=== PATIENT | female | born 1985 | race Asian ===

== ENCOUNTER 2017-09-20 19:05 | Inpatient (IN) | payer MEDICARE ==
[~2017-09-20] VITALS: Ht 144.8 cm; Wt 35.2 kg
[~2017-09-20 19:05] MED LIST: ALESSE PO; BACTROBAN NASAL1 GM NS; FLORINEF 0.1 M0.1 MG PO; K-DUR20 MEQ; K-DUR20 MEQ PO; MAG-OX 400 MG400 MG PO; MAGNESIUM OXID250 M1 PO; MIDODRINE HCL10 MG PO; NORCO 5/325 TAB1 TA1 PO; PEPCID20 MG PO; PERCOCET 5-3251 TAB PO; PROAMATINE10 MG PO; PROAMATINE2.5 MG PO; ROCALTROL0.25 MCG PO; TUMS500 MG; TUMS500 MG PO; TYLENOL 325 MG325 MG PO
--- NOTE | 2017-09-20 23:08 | NUR ---
PT RECEIVED FROM [facility], IV-LFA-NS @ 50 AND K+ INFUSING, WILL CALL FREIGHT SOLICITOR TO RECEIVE NEW ORDERS, PT DENIES ANY NEEDS AT THIS TIME, BED IS LOW, SRX2, CALL LIGHT IN REACH, WILL FOLLOW UP WITH NEW ORDERS
[2017-09-20] MEDS ORDERED: SENSIPAR60 MG PO (23:20)
[2017-09-20] MEDS ORDERED: RENVELA800 MG PO (23:21)
--- NOTE | 2017-09-21 01:56 | NUR ---
WAS UNABLE TO GET CULTURE, PT WAS EMPTY AT THIS TIME
--- NOTE | 2017-09-21 02:23 | NUR ---
STARTED PD-1.5 AT 0155 FINISHED FILLING AT 0210, PT TOLERATED WELL
[2017-09-21 05:03] VITALS: BP 89/51
[2017-09-21 06:24] LABS: ALBUMIN 2.4 g/dL (3.4-5.0); BILIRUBIN - DIRECT 0.08 mg/dL (0.00-0.30); BILIRUBIN - INDIRECT 0.32 mg/dL (0.00-1.00); BILIRUBIN - TOTAL 0.4 mg/dL (0.2-1.3)
--- NOTE | 2017-09-21 07:19 | NUR ---
AM ROUNDING- RECEIVED REPORT FROM BEAMER OPERATOR NURSE ADAM. PT IS CURRENTLY LAYING IN BED BACK WITH EYES OPEN RESTING REQUESTING PAPER TAPE AND GUAZE. PT GIVEN GUAZE AND PAPER TAPE. ON ROOM AIR. NO MONITOR. IV SEEN TO LEFT HAND THAT IS SALINE LOCKED. PER ADAM, PT HAS PD FLUID DWELLING ORDERED AND FOR THIS NURSE TO AWAIT FURTHER ORDERS WRITTEN IN NURSING MESSAGE PER DR. NUÑEZ. NO NEED AT THIS TIME. WILL CONTINUE TO MONITOR AND CONTINUE WITH PLAN OF CARE.
[2017-09-21 08:14] VITALS: BP 100/60
--- NOTE | 2017-09-21 09:18 | NUR ---
DR. NUÑEZ ON UNIT. DR. NUÑEZ MADE AWARE THAT FELT HAT INSPECTOR AND PACKER NURSE ADAM COULD NOT OBTAIN CULTURE FROM PD DRAINAGE DUE TO HAVING NO FLUID TO DRAIN. DR. NUÑEZ GAVE VERBAL ORDERS TO GO AHEAD AND DRAIN PTS PD FLUID AND SEND CULTURE OFF TO LAB. WILL DO ORDERED.
--- NOTE | 2017-09-21 10:45 | NUR ---
PD DIALYSIS DONE ON PT ORDERED. HEPARIN 1,000UNITS INSERTED INTO PD BAG ORDERED. WILL CONTINUE TO MONITOR
[2017-09-21 12:05] VITALS: BP 119/83
[2017-09-21 12:53] VITALS: Ht 144.8 cm; Wt 35.2 kg
--- NOTE | 2017-09-21 13:47 | NUR ---
DR. NUEÑZ ON UNIT. ASKED HIM REGARDING RE-STARTING PTS HOME MEDICATIONS. NO NEW ORDERS RECEIVED.
[2017-09-21 14:06] LABS: MACROPHAGES BF 10 %; NEUT - BF 86 %
--- NOTE | 2017-09-21 15:42 | NUR ---
SECOND ROUND OF PERITONEAL DIALYSIS COMPLETED. PD FLUID IS CLEAR. 1,400CC DRAINED FROM PD BAG. 1,700CC INSERTED AND IS NOW DWELLING. MOTHER IS AT BEDSIDE. PT DENIES ANY NEED AT THIS CURRENT TIME. WILL CONTINUE TO MONITOR.
[2017-09-21 16:18] VITALS: BP 133/63
--- NOTE | 2017-09-21 18:34 | NUR ---
PT IS CURRENTLY LAYING ACROSS BED ON PHONE. MOTHER IS AT BEDSIDE. NO NEED AT THIS TIME. WILL CONTINUE TO MONITOR.
[2017-09-21 19:00] VITALS: BP 107/70
--- NOTE | 2017-09-21 19:44 | NUR ---
RECEIVED REPORT, WILL ASSUME CARE OF PT, PT DENIES ANY NEEDS AT THIS TIME, BED IS LOW, SRX2, CALL LIGHT IN REACH, WILL CONTINUE PLAN OF CARE
[2017-09-22 01:21] VITALS: BP 112/46
--- NOTE | 2017-09-22 03:56 | NUR ---
PD- DRAINED 1800ML, PT TOLERATED WELL
[2017-09-22 04:00] VITALS: BP 112/78
--- NOTE | 2017-09-22 07:28 | NUR ---
AM ROUNDING- RECEIVED REPORT FROM CENTER MANAGER NURSE ADAM. PT IS CURRENTLY LAYING IN BED WITH EYES CLOSED RESTING. MOTHER IS AT BEDSIDE. ON ROOM AIR. NO MONITOR. IV SEEN TO LEFT HAND THAT IS CURRENTLY SALINE LOCKED. NO NEED AT THIS CURRENT TIME. WILL CONTINUE TO MONITOR AND CONTINUE WITH PLAN OF CARE.
[2017-09-22 08:19] LABS: HEPATITIS C ANTIBODY 0.1 (0.0-0.9)
[2017-09-22 08:42] VITALS: BP 109/69
--- NOTE | 2017-09-22 10:55 | NUR ---
PD DIALYSIS DONE ORDERED. 1,600CC OF FLUID DRAINED FROM PD CATHETER. 1,700CC OF FLUID INSERTED INTO PD CATHETER ORDERED. PT DENIES ANY PAIN OR DISCOMFORT. WILL CONTINUE TO MONITOR.
[2017-09-22 12:09] VITALS: BP 117/85
[2017-09-22 16:29] VITALS: BP 113/76
--- NOTE | 2017-09-22 18:43 | NUR ---
PT IS CURRENTLY LAYING IN BED WITH EYES OPEN RESTING. MOTHER IS AT BEDSIDE. PT DENIES ANY NEED AT THIS CURRENT TIME. WILL CONTINUE TO MONITOR.
--- NOTE | 2017-09-22 19:50 | NUR ---
PATIENT RESTING COMFORTABLY AT THIS TIME. FAMILY IN ROOM. DENIES ANY NEEDS. BED LOW, CALL LIGHT IN REACH.
[2017-09-22 20:00] VITALS: BP 125/91
[2017-09-23 01:11] VITALS: BP 123/84
--- NOTE | 2017-09-23 04:07 | NUR ---
PT RESTING COMFORTABLY, EYES CLOSED, RESPIRATIONS EVEN AND UNLABORED. CONTINUE TO MONITOR CLOSELY. BED LOW, CALL LIGHT IN REACH, SIDE RAILS X 2, HOB 20 DEGREES.
[2017-09-23 04:29] VITALS: BP 104/76
[2017-09-23 05:22] LABS: BASOPHILS 0.2 % (0-2); EOSINOPHILS 5.6 % (0-7); HEMATOCRIT 34.4 % (36.0-48.0); HEMOGLOBIN 10.9 g/dL (12-16); IMMATURE GRANULOCYTES 0.2 % (0-5); LYMPHOCYTES 26.7 % (15-50); MCH 28.5 pg (26.0-34.0); MCHC 31.7 g/dL (31.0-37.0); MCV 89.8 fL (80.0-100.0); MEAN PLATELET VOLUME 9.4 fL (7.4-10.4); NEUTROPHILS 62.3 % (40-80); PLATELET COUNT 207 10x3/uL (130-400); RBC 3.83 10x6/uL (4.00-5.40); RDW 15.1 % (11.5-14.5); WBC 5.2 10x3/uL (4.8-10.8)
--- NOTE | 2017-09-23 06:02 | NUR ---
RESTING COMFORTABLY. PD TOLERATED WELL TONIGHT. PATIENT REQUESTED A TYLENOL FOR DISCOMFORT AT 0430. REPORTS NO PAIN AT THIS TIME. BED LOW, CALL LIGHT IN REACH.
[2017-09-23 06:05] LABS: ANION GAP 16.4 mmol/L (8-16); CALCIUM 7.4 mg/dL (8.5-10.1); CARBON DIOXIDE 26.3 mmol/L (21.0-32.0); VANCOMYCIN - RANDOM 31.9 ug/mL (10.0-20.0)
[2017-09-23 06:16] LABS: POTASSIUM - SERUM 2.7 mmol/L (3.5-5.1)
[2017-09-23 08:23] VITALS: BP 114/78
--- NOTE | 2017-09-23 08:48 | NUR ---
AM MEDS GIVEN, PT REFUSED RAMYA STATED THAT IT MAKES HER SICK, USUALLY TAKES IN THE EVENNING. WILL TALK TO DOCTOR TO SEE IF SHE CAN TAKE IN THE EVENING. PT DENIES ANY NEEDS AT THIS TIME. CALL LIGHT IN REACH, FAMILY AT BEDSIDE, NAD NOTED, WILL CONTINUE PLAN OF CARE.
[2017-09-23] MEDS ORDERED: OMNICEF300 MG PO ×2 (11:24→11:25)
[2017-09-23 11:56] VITALS: BP 142/69
--- NOTE | 2017-09-23 14:09 | NUR ---
PROVIDED VERBAL AND WRITTEN DISCHARGE TEACHING TO PT AND MOTHER, BOTH VERBALIZED UNDERSTANDING REGARDING TEACHING. D/C LT UPPER ARM IV, TIP INTACT. 1448- PT LEFT UNIT VIA WHEELCHAIR, ACCOMPANIED BY MOTHER, NAD NOTED.
--- NOTE | 2017-09-23 17:47 | NUR ---
Patient Name: JANINE SMITH Admission Status: Elective Accout number: [id number] Admission Date: 09-20-2017 : 1985 Admission Diagnosis:UNSPECIFIED ABDOMINAL PAIN Attending: ANGELA NUÑEZ Current LOS: 3 Anticipated DC Date: 09-23-2017 Planned Disposition: Home Primary Insurance: MEDICARE A & B Discharge Planning Comments: * Is the patient Alert and Oriented? Yes 0 * How many steps to enter\exit or inside your home? 4 0 * PCP NONE NEPHROLOGISTS - DR. BENJAMIN WHEELER 0 * Pharmacy [facility] MAIL ORDER 0 * Preadmission Environment Home with Family 0 * ADLs Independent 0 * Equipment Other 0 * Other Equipment HOME DIALYSIS EQUIPMENT 0 * List name and contact numbers for known caregivers / representatives who currently or will assist patient after discharge: VICKIE SMITH, FATHER, 0 * Community resources currently utilized None 0 * Please name any agencies selected above. NONE 0 * Additional services required to return to the preadmission environment? No 0 * Can the patient safely return to the preadmission environment? Yes 0 * Has this patient been hospitalized within the prior 30 days at any hospital? No 0 CM MET WITH PT AND HER MOTHER IN ROOM TO DISCUSS DISCHARGE PLANNING AND NEEDS. PT REPORTS LIVING AT HOME INDEPENDENTLY WITH HER CHILDREN. PT HAS HOME HEMODIALYSIS EQUIPMENT AT HOME WITH NO MEDICAL EQUIPMENT PROVIDER PREFERNCE. PT HAS NO OUTSIDE SERVICES ASSISTING IN THE HOME. CM DISCUSSED AVAILABILITY OF HOME HEALTH, REHAB SERVICES AND MEDICAL EQUIPMENT. PT DENIES DISCHARGE NEEDS, REPORTS HER MOTHER IS HERE TO PICK HER UP FOR DISCHARGE HOME. IMPORTANT MESSAGE FROM MEDICARE PROVIDED AND EXPLAINED. Cigarette Examiner: Akbar Chun
--- NOTE | 2017-09-27 14:42 | DS ---
PATIENT:JANINE SMITH :[birth year] MEDICAL RECORD: [id number] DISCHARGE SUMMARY ADMISSION DATE: 09/20/17 DISCHARGE DATE: 09/23/17 REASON FOR ADMISSION: Peritonitis due to peritoneal dialysis catheter and peritoneal dialysis. HOSPITAL COURSE: This is a 32-year-old small framed female with abdominal pain. She had overtly negative CT scan, but did have leukocytosis on her peritoneal fluid. She is improved with vancomycin. She has an adequate level. We will have her follow up with our peritoneal dialysis team at her facility preferably this Thursday. On discharge, we will continue her cinacalcet 60 a day, Renvela 800 t.i.d., oxycodone she has at home, ProAmatine 10 t.i.d., Pepcid 20 twice a day, Florinef 0.2 twice a day, and her Bactroban nasal cream to her nares once a month and her catheter exit site p.r.n. She will follow up with the dialysis nurse. Stable on discharge. Continue renal diet. Her potassium was low at 2.7. We have ordered 30 mEq and she will increase the potassium in her diet and have lab checked with her peritoneal dialysis team. Stable on discharge. TRANSINT:[id number] Voice Confirmation ID: [id number] DOCUMENT ID: [id number] ELIEL DE LEON MD at 1442 CC: [id number] DICTATION DATE: 09/23/17 1119 LAMINATION INSPECTOR: 09/24/17 0200 DIS IN 09/23/17 [id number] [place] [address]
== END 2017-09-23 15:00 | disposition home or self-care (01) | DRG 919 ==
LOC: D.MS 19:05 → D.M2 23:00
PROVIDERS: ADMIT Internal Medicine Nephrology
DX: T85.71XA Infection and inflammatory reaction due to peritoneal dialysis catheter, initial encounter (principal); K65.9 Peritonitis, unspecified; N18.6 End stage renal disease; Y83.8 Other surgical procedures as the cause of abnormal reaction of the patient, or of later complication, without mention of misadventure at the time of the procedure; Z99.2 Dependence on renal dialysis; D63.1 Anemia in chronic kidney disease; I95.9 Hypotension, unspecified; E87.6 Hypokalemia; G89.4 Chronic pain syndrome

== ENCOUNTER 2018-12-28 08:49 | Outpatient (CLI) | payer MEDICARE ==
[~2018-12-28] VITALS: Ht 139.7 cm; Wt 34.0 kg
[~2018-12-28 08:49] MED LIST changes: +OMNICEF300 MG PO; +RENVELA800 MG PO; +SENSIPAR60 MG PO
[2018-12-28 09:30] LABS: BASOPHILS 0.1 % (0-2); EOSINOPHILS 2.3 % (0-7); HEMATOCRIT 22.7 % (36.0-48.0); IMMATURE GRANULOCYTES 0.2 % (0-5); LYMPHOCYTES 16.7 % (15-50); MCH 29.1 pg (26.0-34.0); MONOCYTES 3.4 % (2-11); NEUTROPHILS 77.3 % (40-80); PLATELET COUNT 196 10x3/uL (130-400); RBC 2.58 10x6/uL (4.00-5.40); RDW 15.7 % (11.5-14.5); WBC 8.6 10x3/uL (4.8-10.8)
[2018-12-28 09:38] LABS: HEMOGLOBIN 7.5 g/dL (12-16)
[2018-12-28 09:40] LABS: ANION GAP 15.9 mmol/L (8-16); CALCIUM 9.3 mg/dL (8.5-10.1); CREATININE - SERUM 9.4 mg/dL (0.6-1.3)
[2018-12-28 09:42] LABS: INR 1.09 (0.85-1.17); PROTIME 13.6 SECONDS (11.6-15.0)
[2018-12-28 09:43] LABS: POTASSIUM - SERUM 2.9 mmol/L (3.5-5.1)
[2018-12-28] MEDS ORDERED: K-DUR20 MEQ PO (10:21)
[2018-12-28] MEDS ORDERED: PARICALCITOL4 MCG PO (10:22)
[2018-12-28] MEDS ORDERED: ACETAMINOPHEN325 MG PO (10:23)
[2018-12-28] MEDS ORDERED: CLARITIN 10 MG10 MG PO (10:23)
[2018-12-28] MEDS ORDERED: IMODIUM2 MG PO (10:24)
[2018-12-28] MEDS ORDERED: VASOTEC2.5 MG PO (10:26)
[2018-12-28] MEDS ORDERED: SENSIPAR30 MG PO (10:26)
[2018-12-28] MEDS ORDERED: GENTAMICIN SULF30 G1 TOPICAL (10:28)
[2018-12-28 10:36] LABS: HCG SERUM NEGATIVE (NEGATIVE)
[2018-12-28 10:37] VITALS: BP 148/73; Ht 139.7 cm; Wt 34.0 kg
--- NOTE | 2018-12-28 13:49 | NUR ---
1111 1ST UNIT BLOOD STARTED. SURGERY IS CANCELLED. PT TO RECEIVE BLOOD AND POTASSIUM IV. BLOOD STARTED AT 50/CC/HR BY LT HAND IV 1126 NO PROBLEMS NOTED RATE INCREASED TO 200/CC/HR PT SLEEPING. 1200 ROOM CHECK PT SLEEPING BLOOD GOING WELL. POTASSIUM GIVEN PER E-MAR VIA LEFT ARM AC IV SITE. 1255 1ST UNIT COMPLETED IV FLUSING WITH NS. [id number] UNIT CHECKED AT BEDSIDE, STARTED AT 50/CC HR RENAL DIET SERVED 1320 RATE INCREASED TO 200/CC/HR DENIES PROBLEMS.
--- NOTE | 2018-12-28 13:53 | NUR ---
2044 YASMIN CAZARES APN NOTIFIED OF SURGERY CANCELLED AND WILL NEED TO BE RESCHEDULED.
--- NOTE | 2018-12-28 14:34 | NUR ---
1430 2ND UNIT OF BLOOD HAS COMPLETED. LINE BEING FLUSHED WITH NS. STILL HAS POTASSIUM TO COMPLETE.
--- NOTE | 2018-12-28 14:36 | NUR ---
2885 PT'S FAMILY HAS BROUGHT FOOD FOR HER.
--- NOTE | 2018-12-28 15:14 | NUR ---
1510 DENIES PROBLEMS WITH BLOOD. IV FROM LEFT HAND DC'D WITH CATH INTACT. 4TH POTASSIUM INFUSING.
--- NOTE | 2018-12-28 16:19 | NUR ---
1612 INFUSION HAS COMPLETED OF POTASSIUM. IV DC'D WITH CATH COMPLETE. DENIES PROBLEMS UP TO BR, DEPENDS CHANGED, GETTING DRESSED DC INSTS REVIEWED RELEASED IN WC, MOTHER MEDICAL COORDINATOR PESTICIDE USE HOME.
--- NOTE | 2018-12-28 16:34 | NUR ---
1630 DC INSTS REVIEWED RELEASED IN WC
== END 2018-12-28 16:30 | disposition home or self-care (01) ==
LOC: D.OPS 08:49 → EDSTATUS 09:30 → D.OPS 16:30
PROVIDERS: Anesthesiology; Surgery; ATTEND Internal Medicine Nephrology
DX: N25.81 Secondary hyperparathyroidism of renal origin (principal); I12.0 Hypertensive chronic kidney disease with stage 5 chronic kidney disease or end stage renal disease; N18.6 End stage renal disease; Z99.2 Dependence on renal dialysis

== ENCOUNTER 2019-02-18 08:12 | Inpatient (IN) | payer MEDICARE ==
[~2019-02-18 08:12] MED LIST changes: +ACETAMINOPHEN325 MG PO; +CLARITIN 10 MG10 MG PO; +GENTAMICIN SULF30 G1 TOPICAL; +IMODIUM2 MG PO; +PARICALCITOL4 MCG PO; +SENSIPAR30 MG PO; +VASOTEC2.5 MG PO
[2019-02-18 08:40] LABS: ANION GAP 13.4 mmol/L (8-16); CALCIUM 9.9 mg/dL (8.5-10.1); CREATININE - SERUM 8.3 mg/dL (0.6-1.3); POTASSIUM - SERUM 3.4 mmol/L (3.5-5.1)
[2019-02-18 08:49] LABS: BASOPHILS 0.3 % (0-2); EOSINOPHILS 3.7 % (0-7); HEMATOCRIT 30.9 % (36.0-48.0); HEMOGLOBIN 9.7 g/dL (12-16); IMMATURE GRANULOCYTES 0.6 % (0-5); LYMPHOCYTES 17.7 % (15-50); MCH 28.9 pg (26.0-34.0); MCHC 31.4 g/dL (31.0-37.0); MEAN PLATELET VOLUME 8.9 fL (7.4-10.4); MONOCYTES 3.9 % (2-11); NEUTROPHILS 73.8 % (40-80); PLATELET COUNT 171 10x3/uL (130-400); RBC 3.36 10x6/uL (4.00-5.40); RDW 19.6 % (11.5-14.5); WBC 6.9 10x3/uL (4.8-10.8)
[2019-02-18 08:53] LABS: INR 1.1 (0.85-1.17); PROTIME 13.7 SECONDS (11.6-15.0)
--- NOTE | 2019-02-18 14:55 | NUR ---
OPA IN AIRWAY ON ADMIT TO RR
[2019-02-18 16:40] VITALS: BP 126/78
--- NOTE | 2019-02-18 16:40 | NUR ---
RECEIVED PT FROM RECOVERY AT THIS TIME. HOOKED UP TO MONITOR. VSS. PT AWAKE ALERT AND ORIENTED. INCISION TO ANTERIOR NECK FROM SURGERY. PD CATH TO RIGHT LOWER ABDOMEN. DRESSING CDI. MOTHER IN ROOM. WILL CHECK FOR ORDERS
[2019-02-18 17:22] LABS: BASOPHILS 0.1 % (0-2); EOSINOPHILS 0.8 % (0-7); HEMATOCRIT 29.3 % (36.0-48.0); HEMOGLOBIN 9.2 g/dL (12-16); IMMATURE GRANULOCYTES 0.5 % (0-5); LYMPHOCYTES 12.7 % (15-50); MCH 29.2 pg (26.0-34.0); MCHC 31.4 g/dL (31.0-37.0); MEAN PLATELET VOLUME 8.8 fL (7.4-10.4); MONOCYTES 0.4 % (2-11); NEUTROPHILS 85.5 % (40-80); PLATELET COUNT 160 10x3/uL (130-400); RBC 3.15 10x6/uL (4.00-5.40); RDW 20.2 % (11.5-14.5)
[2019-02-18 17:31] LABS: ANION GAP 19.5 mmol/L (8-16); CALCIUM 8.6 mg/dL (8.5-10.1); CARBON DIOXIDE 21.5 mmol/L (21.0-32.0); CREATININE - SERUM 8.7 mg/dL (0.6-1.3)
[2019-02-18 19:00] VITALS: BP 126/83
--- NOTE | 2019-02-18 19:20 | NUR ---
REPORT REC'D AND CARE ASSUMED, REC'D PT AWAKE, ALERT, AND ORIENTED ON ROOM AIR, LEFT HAND PIV SALINE LOCKED, RIJ CVL DRSG CDI WITH CALCIUM GLUCONATE INFUSING, NON WORKING FISTULA IN RIGHT ARM, MAEE, CM-SR, BP STABLE, ANTERIOR NECK DRSG CDI, SLIGHT EDEMA NOTED, ICE PACK TO SITE, PT DENIES PAIN OR NEEDS AT THIS TIME, SR UP X 2, BED IN LOW POSITION, CALL LIGHT IN REACH.
[2019-02-18 20:00] VITALS: BP 133/84
--- NOTE | 2019-02-18 20:30 | NUR ---
MOTHER AT BS, UPDATE GIVEN AND QUESTIONS ANSWERED, PT DENIES NEEDS
[2019-02-18 21:00] VITALS: BP 131/85
[2019-02-18 22:00] VITALS: BP 138/95
--- NOTE | 2019-02-18 22:00 | NUR ---
EVENING MEDS GIVEN ORDERED, PT ASSISTED TO REPOSITION FOR COMFORT, BRIEF INTACT AND DRY, WILL CONT TO MONITOR FOR CHANGES.
[2019-02-18 23:00] VITALS: BP 148/104
--- NOTE | 2019-02-18 23:00 | NUR ---
REASSESSMENT COMPLETED, PT DENIES NEEDS, BP STABLE, WILL MONITOR.
[2019-02-18 23:56] LABS: ANION GAP 20.9 mmol/L (8-16); CALCIUM 7.5 mg/dL (8.5-10.1); CARBON DIOXIDE 21.3 mmol/L (21.0-32.0)
[2019-02-18 23:58] LABS: POTASSIUM - SERUM 5.2 mmol/L (3.5-5.1)
[2019-02-19] VITALS (19 sets, daily range): BP systolic 92–161; BP diastolic 43–108; BMI 18.6
--- NOTE | 2019-02-19 01:30 | NUR ---
ROUTINE MEDS GIVEN, PT RESTING QUIETLY WATCHING TV, DENIES PAIN OR NEEDS, VISIBLE TO NURSES STATION.
--- NOTE | 2019-02-19 03:15 | NUR ---
REASSESSMENT COMPLETED, NO CHANGES FROM PREVIOUS ASSESSMENT, WILL CONT TO MONITOR CLOSELY FOR CHANGES.
--- NOTE | 2019-02-19 05:20 | NUR ---
AM LAB DRAWN FROM CV[facility] AND SENT TO LAB, RUBI ENRIQUEZ ON UNIT, ORDERS REC'D.
[2019-02-19 06:05] LABS: ANION GAP 22.8 mmol/L (8-16); CALCIUM 7.4 mg/dL (8.5-10.1); CARBON DIOXIDE 18.4 mmol/L (21.0-32.0); CREATININE - SERUM 9.3 mg/dL (0.6-1.3); MAGNESIUM - SERUM 1.4 mg/dL (1.8-2.4)
[2019-02-19 06:11] LABS: BASOPHILS 0 % (0-2); EOSINOPHILS 0 % (0-7); HEMATOCRIT 27.3 % (36.0-48.0); HEMOGLOBIN 8.6 g/dL (12-16); IMMATURE GRANULOCYTES 0.4 % (0-5); LYMPHOCYTES 5.6 % (15-50); MCH 29.4 pg (26.0-34.0); MCHC 31.5 g/dL (31.0-37.0); MCV 93.2 fL (80.0-100.0); MEAN PLATELET VOLUME 9.4 fL (7.4-10.4); PLATELET COUNT 162 10x3/uL (130-400); RBC 2.93 10x6/uL (4.00-5.40); RDW 20.4 % (11.5-14.5); WBC 11.9 10x3/uL (4.8-10.8)
[2019-02-19 06:27] LABS: POTASSIUM - SERUM 7.2 mmol/L (3.5-5.1)
--- NOTE | 2019-02-19 07:05 | NUR ---
REPORT RECIEVED FROM TANDEM MILL STICKER AND PATIENT CARE ASSUMED. PATIENT LAYING IN BED ON BACK WITH HOB ELEVATED 15 DEGREES. PATIENT IS AWAKE, ALERT AND ORIENTED X 4. ANTERIOR NECK DRSG C/D/I. MILD EDEMA TO PERIWOUND. NO REDNESS. PATIENT DENIES PAIN TO WOUND/NECK AND DENIES THROAT PAIN AND DIFFICULTY SWALLOWING. PAITENT IS STABLE AND VSS. WILL CONTINUE WITH PLAN OF CARE. SR UP X 2 BED IN LOW POSITION AND CALL LIGHT IN REACH.
--- NOTE | 2019-02-19 07:28 | NUR ---
PATIENT AND NURSE WEARING MASK. PEROTINEAL DIALYSIS BEGUN AT 07. NO DRAINAGE FROM PERITENEUM.1500 CC OF WARMED 1.5% DEXTROSE SOLUTION INSTILLED PER MAR ORDER. DIALYSIS COMPLETED AT 07. PATIENT TOLERATED WELL. WILL CONTIUE WITH PLAN OF CARE. SR UP X 2 BED IN LOW POSTION AND CALL LIGHT IN REACH.
--- NOTE | 2019-02-19 09:00 | NUR ---
ASSESSMENT COMPLETED. PATIENT IS STABLE AND VSS. REQUESTED, PROVIDED PATIENT WITH ICE PACK TO PLACE ON ANTERIOR NECK. DRSG STILL C/D/I. PATIENT MOTHER AT BEDSIDE. WILL CONTINUE TO MONITOR.
--- NOTE | 2019-02-19 10:59 | NUR ---
PATIENT RESTING QUIETLY IN BED WITH EYES CLOSED AND BREATHING EVENLY. VSS. REASSESSMENT COMPLETED. WILL CONTINUE TO MONITOR. SR UP X 2 BED IN LOW POSITION AND CALL LIGHT IN REACH.
--- NOTE | 2019-02-19 12:29 | NUR ---
PD BEGUN. PATIENT IS STABLE AND VSS. 2000 ML CLEAR, YELLOW FLUID REMOVED AND 1500 ML DIALYSIS SOLUTION 1.5% DEXTROSE INSTILLED. PATIENT REMAINS STABLE AND VSS. PATIENT DENIES ANY NEEDS OR PAIN. WILL CONTINUE TO MONITOR. SR UP X 2 BED IN LOW POSITION AND CALL LIGHT IN REACH.
[2019-02-19 12:59] LABS: ANION GAP 17.6 mmol/L (8-16); CALCIUM 7.4 mg/dL (8.5-10.1); CARBON DIOXIDE 22.4 mmol/L (21.0-32.0)
--- NOTE | 2019-02-19 15:00 | NUR ---
PATIENT RESTING COMFOTABLY. RESSESSMENT COMPLETED. PATIENT STABLE AND UNCHANGED. WILL CONTINUE TO MONITOR. SR UP X 2 BED IN LOW POSITION AND CALL LIGHT IN REACH.
--- NOTE | 2019-02-19 16:14 | NUR ---
PATIENT IS STABLE AND VSS. PD BEGUN AND COMPLETED. START TIME 1614 END TIME 1637. 1600 CC OF CLEAR, YELLOW FLUID REMOVED AND 1500 CC 1.5% DEXTROSE SOLUTION INSTILLED. PATIENT REMAINS STABLE AND VSS. PATIENT DENIES ANY NEEDS OR PAIN. WILL CONTINUE TO MONITOR. SR UP X 2 BED IN LOW POSTION AND CALL LIGHT IN REACH.
[2019-02-19 18:25] LABS: ANION GAP 17.2 mmol/L (8-16); CALCIUM 7.4 mg/dL (8.5-10.1); CARBON DIOXIDE 24.2 mmol/L (21.0-32.0); CREATININE - SERUM 8.5 mg/dL (0.6-1.3)
[2019-02-19 18:27] LABS: POTASSIUM - SERUM 4.4 mmol/L (3.5-5.1)
--- NOTE | 2019-02-19 19:20 | NUR ---
REPORT REC'D AND CARE ASSUMED, REC'D PT RESTING IN BED VISITING WITH MOTHER, ON ROOM, AWAKE, ALERT, AND ORIENTED X 4, RIJDL DRSG CDI SALINE LOCKED, DRSG TO ANTERIOR NECK CDI, NO DRAINAGE AND ONLY SLIGHT EDEMA NOTED, PT DENIES SORE THROAT, TOLERATING PO INTAKE, NON WORKING FISTULA NOTED TO RIGHT ARM, MAEE, ADULT BRIEF INTACT AND DRY, PT DENIES PAIN OR NEEDS, SR UP X 2, BED IN LOW POSITION PD CATHETER SECURED TO ABDOMEN WITH TAPE AND STERILE CAP IN PLACE , CALL LIGHT IN REACH.
--- NOTE | 2019-02-19 20:30 | NUR ---
MOTHER AT BS FOR VISITING, PT DENIES NEEDS
--- NOTE | 2019-02-19 20:40 | NUR ---
DR. DE LEON ON UNIT, NEW ORDERS REC'D
--- NOTE | 2019-02-19 22:00 | NUR ---
PT RESTING QUIETLY IN BED, EXPLAINED TO PATIENT MD HAD BEEN HERE AND ADJUSTED FREQUENCY OF PD, PT VERBALIZED UNDERSTANDING, CUP OF ICE PROVIDED, PT DENIES FURTHER NEEDS
[2019-02-20] VITALS (17 sets, daily range): BP systolic 101–173; BP diastolic 54–112
--- NOTE | 2019-02-20 | NUR ---
PERITONEAL DIALYSIS COMPLETED, SEE FLOWSHEET, BP STABLE, PT DENIES NEEDS.
--- NOTE | 2019-02-20 02:00 | NUR ---
NO CHANGES IN STATUS @ THIS TIME
--- NOTE | 2019-02-20 04:00 | NUR ---
ROUTINE MEDS GIVEN, PT DENIES PAIN OR NEEDS, BP ELEVATED WILL CONT TO MONITOR.
--- NOTE | 2019-02-20 05:30 | NUR ---
AM LAB DRAWN FROM CVL AND SENT TO LAB
--- NOTE | 2019-02-20 06:06 | NUR ---
PERITONEAL DIALYSIS DONE ORDERED, PT INCONTINENT OF STOOL, HIBICLENS BATH AND LINEN CHANGE PROVIDED, ADULT BRIEF CHANGED, PT REPOSITIONED UP IN BED FOR COMFORT, PT DENIES PAIN OR NEEDS, SR UP X 2, CALL LIGHT IN REACH.
[2019-02-20 06:29] LABS: ANION GAP 14.7 mmol/L (8-16); CALCIUM 8.8 mg/dL (8.5-10.1); CARBON DIOXIDE 25.6 mmol/L (21.0-32.0); CREATININE - SERUM 8.5 mg/dL (0.6-1.3); POTASSIUM - SERUM 4.3 mmol/L (3.5-5.1)
--- NOTE | 2019-02-20 07:35 | NUR ---
SHIFT REPORT RECEIVED. AA&0X4. DENIES PAIN AT THIS TIME. ON ROOM AIR. ANTERIOR NECK INCISION WITH DRESSING CDI. RIJ DOUBLE LUMEN CVL DRESSING CDI SALINE LOCKED. PD PORT ON R ABDOMEN. 22G PIV ON L-HAND SALINE LOCK. SHIFT ASSESSMENT COMPLETED. BED PLACED IN LOW POSITION. MEAL TRAY DELIVERED AND SET UP. NO FURTHER NEEDS AT THIS TIME. WILL CONTINUE TO MONITOR.
--- NOTE | 2019-02-20 09:01 | NUR ---
ANABEL ENRIQUEZ WITH NEPROLOGY GROUP ASSESSED PT. BP ELEVATED. INCREASED VASOTEC DOSE TO 10MG PO DAILY. PT RESTING COMFORTABLY. FAMILY MEMBER AT BEDSIDE. DENIES FURTHER NEEDS AT THIS TIME.
--- NOTE | 2019-02-20 09:25 | NUR ---
DR. DE LEON AT BEDSIDE. PATIENT CAN TRANSFER TO FLOOR PER DR. DE LEON.
--- NOTE | 2019-02-20 10:26 | NUR ---
BP 164/110. APRESOLINE 10MG IV GIVEN TO TREAT HIGH BP PER ORDERS.
--- NOTE | 2019-02-20 11:24 | NUR ---
REASSESSMENT COMPLETED. BP 140/95. HR 118. PT REPORTS HEADACHE 5/10. TYLENOL GIVEN FOR PAIN. WILL CONTINUE TO MONITOR.
--- NOTE | 2019-02-20 12:43 | NUR ---
PERITONEAL DIALYSIS COMPLETED PER ORDERS. SITTING UP ON SIDE OF BED EATING LUNCH.
--- NOTE | 2019-02-20 15:50 | NUR ---
PT BEING TRANSFERRED TO 2104. REPORT CALLED IN TO GAUTAM DYER. L-HAND IV DC'D WITH CATHETER TIP INTACT. MOTHER AT BEDSIDE.
--- NOTE | 2019-02-20 16:05 | NUR ---
TRANSFERRED TO FLOOR ROOM 2105 VIA WHEELCHAIR. MOTHER AT BEDSIDE. PERSONAL BELONGINGS SENT WITH PATIENT. RECEIVING NURSE NOTIFIED OF PT ARRIVAL. CHART DELIVERED TO WINTERIZER.
--- NOTE | 2019-02-20 16:09 | NUR ---
RECIEVED PATIENT FROM ICU, TRANSPORTED VIA WHEELCHAIR, AAOX4. RIGHT IJ, PATENT, DRESSING C/D/I. ON ROOM AIR, MOTHER IS PRESENT, PT IS AMBULATORY, ON PERITONEAL DIALYSIS, DENIES ANY CURRENT NEEDS OR DISCOMFORTS, BED LOWERED AND LOCKED, CALL LIGHT WITHIN REACH. CPOC
--- NOTE | 2019-02-20 19:45 | NUR ---
ROUNDS COMPLETED. VSS, AAOX3, NO S/S OF RR DISTRESS. MOTHER AT BEDSIDE. RIJ CENTRAL LINE DRESSING C/D/I. ABDOMINAL PERITONEAL DIALYSIS ACCESS SITE DRESSING C/D/I. PT DENIES ANY FURTHER NEEDS AT THIS TIME. WILL CPOC.
[2019-02-20 20:32] LABS: ANION GAP 16.4 mmol/L (8-16); CALCIUM 8.2 mg/dL (8.5-10.1); CARBON DIOXIDE 26.4 mmol/L (21.0-32.0); CREATININE - SERUM 8.5 mg/dL (0.6-1.3); POTASSIUM - SERUM 3.8 mmol/L (3.5-5.1)
--- NOTE | 2019-02-21 00:34 | NUR ---
PERITONEAL DIALYSIS COMPLETED. PT LAYING IN BED WITH EYES CLOSED AT THIS TIME. WILL CPOC.
[2019-02-21 03:25] VITALS: BP 182/112
[2019-02-21 05:38] LABS: ANION GAP 14.5 mmol/L (8-16); CALCIUM 8.1 mg/dL (8.5-10.1); CARBON DIOXIDE 28.1 mmol/L (21.0-32.0); CREATININE - SERUM 8.4 mg/dL (0.6-1.3); POTASSIUM - SERUM 3.6 mmol/L (3.5-5.1)
[2019-02-21 06:11] LABS: BASOPHILS 0.3 % (0-2); HEMATOCRIT 25.3 % (36.0-48.0); HEMOGLOBIN 7.7 g/dL (12-16); IMMATURE GRANULOCYTES 0.8 % (0-5); LYMPHOCYTES 19.9 % (15-50); MCH 28.9 pg (26.0-34.0); MCHC 30.4 g/dL (31.0-37.0); MCV 95.1 fL (80.0-100.0); MONOCYTES 3.3 % (2-11); NEUTROPHILS 72.7 % (40-80); PLATELET COUNT 154 10x3/uL (130-400); RBC 2.66 10x6/uL (4.00-5.40); RDW 20.9 % (11.5-14.5); WBC 7.6 10x3/uL (4.8-10.8)
[2019-02-21] MEDS ORDERED: TUMS PO (07:10)
[2019-02-21 09:00] VITALS: BP 144/92
--- NOTE | 2019-02-21 09:00 | NUR ---
REMOVED PTS R.IJ DOUBLE LUMEN CVL WITH CATHETER TIP FULLY INTACT. ONE SUTURE REMOVED AND TEACHING PROVIDED TO LAY FLAT FOR 10MINS. NO S/S OF BLEEDING OR INFECTION NOTED AT SITE. GUAZE AND DRSG IN PLACE. ALSO CHANGED PTS NECK DRSG, COVERED WITH DRY GUAZE AND DETAILED INSTRUCTION PROVIDED TO PT AND MOM ON DAILY CLEANING PROCESS WITH SOAP AND WATER, SUPPLIES GIVEN FOR THEM WELL TO KEEP COVERED AT HOME OR WHEN OUT AND ABOUT. PT VOICED THANKS.
--- NOTE | 2019-02-21 09:50 | NUR ---
DISCHARGE TEACHING PROVIDED AND PAPERS SIGNED. PT VERBALIZED UNDERSTANDING AND DENIES ANY QUESTIONS OR CONCERNS. ALL BELONGINGS COLLECTED. WILL CALL FOR ESCORT NOW. NO FURTHER NEEDS.
--- NOTE | 2019-02-21 10:01 | MORECARE ---
CASE MANAGEMENT DISCHARGE SUMMARY PATIENT: JANINE SMITH UNIT: [id number] ADM DATE: 02/18/19 AGE: 33 : [birth year] SEX: F ROOM/BED: D.9728 AUTHOR: CJ,DOC PHYSICIAN: REFERRING PHYSICIAN: BNEJAMIN WHEELER MD DATE OF SERVICE: 02/21/19 Discharge Plan Patient Name: JANINE SMITH Facility: [facility]:[place] : 1985 Planned Disposition: Home Anticipated Discharge Date: 02/21/19 Discharge Date: Expected LOS: 3 Initial Reviewer: [id number] Initial Review Date: 02/21/2019 Generated: 02/21/19 11:01 am Comments DCP- Discharge Planning Updated by [id number]: Akbar Chun on 02/21/19 8:[address] Patient Name: JANINE SMITH Encounter No: [id number] : 1985 Primary Insurance: MEDICARE A & B Anticipated DC Date: 02-21-2019 Planned Disposition: Home DISCHARGE PLANNING NOTE: CM MET WITH PT IN ROOM TO DISCUSS DISCHARGE PLANNING AND NEEDS. PT REPORTS LIVING AT HOME DEPENDENTLY ON MOTHER AND FATHER FOR BATH AND TRANSPORTATION ASSISTANCE. PT HAS NO MEDICAL EQUIPMENT AND NO OUTSIDE SERVICES ASSISTING IN THE HOME. PT HAS HOME DIALYSIS DAILY. CM DISCUSSED AVAILABILITY OF HOME HEALTH, REHAB SERVICES AND MEDICAL EQUIPMENT. PT DENIES DISCHARGE NEEDS, REPORTS HER MOTHER IS HERE AND WILL PICK HER UP FOR DISCHARGE HOME TODAY. IMPORTANT MESSAGE FROM MEDICARE PROVIDED AND EXPLAINED. MEMBERSHIP DIRECTOR NURSE NOTFIED. Akbar Chun, CASE MANAGEMENT DCPIA - Discharge Planning Initial Assessment Updated by [email or web address]: Akbar Chun on 02/21/19 9:56 am * Is the patient Alert and Oriented? Yes * How many steps to enter\exit or inside your home? * PCP DR. BENJAMIN WHEELER * Pharmacy [facility] MAIL ORDER NO LOCAL PHARMACY * Preadmission Environment Home with Family * ADLs Partial Dependent * Partial ADLs (Assistance needed) Bathing * Equipment Other * Other Equipment HOME PERITENEAL DIALYSIS EQUIPMENT * List name and contact numbers for known caregivers / representatives who currently or will assist patient after discharge: LIANA SMITH, FATHER, * Verbal permission to speak to the caregivers and representatives has been obtained from the patient. Yes * Community resources currently utilized None * Please name any agencies selected above. NONE * Additional services required to return to the preadmission environment? No * Can the patient safely return to the preadmission environment? Yes * Has this patient been hospitalized within the prior 30 days at any hospital? No Coverage Notice Reviewer: [id number] Danette Chun Notice Issued Date-Time: 02/21/2019 8:50 Notice Type: IM Discharge Notice Notice Delivered To: Patient Relationship to Patient: Slurry Plant Operator Name: Delivery Method: HAND - Hand Delivered Clarita Days: Prior Verbal Notification: Recipient Understood Notice: Yes Recipient Signature: Yes Med Rec Note Co-signed by Attending: Coverage Notice Comment: Patient Name: JANINE SMITH Page [phone] at 1001 All edits/amendments must be made on the electronic document DICTATION DATE: 02/21/19 1001 STRESS ENGINEER: FARZANA 02/21/19 1001 RPT#: [id number] DC DATE: STATUS: ADM IN [facility] [address] [place] [address] END OF REPORT
--- NOTE | 2019-02-21 10:36 | OP ---
PATIENT NAME: JANINE WAITE MEDICAL RECORD: [id number] :85 LOCATION:D.M2 D.2105 ADMISSION DATE:02/18/19 SURGEON: SAGE WILSON MD DATE OF OPERATION: 02/18/2019 REFERRING PHYSICIAN: Dr. Leila Watts. PREOPERATIVE DIAGNOSIS: Recurrent secondary hyperparathyroidism due to a single hyperplastic gland in the left superior position. POSTOPERATIVE DIAGNOSIS: Recurrent secondary hyperparathyroidism due to a single hyperplastic gland in the left superior position. OPERATION PERFORMED: Intraoperative scintigraphic mapping and localization of the hyperplastic parathyroid gland followed by minimally invasive neck exploration and removal of parathyroid gland with frozen section confirmation of the tissue diagnosis. SURGEON: Sage Wilson MD ANESTHESIA: General endotracheal per [facility]. PREOPERATIVE NOTE: Ms. Waite is a petite 33-year-old woman with end-stage renal disease, who has been on dialysis for quite a long time. She is doing a continuous peritoneal dialysis at home. She has had problems with secondary hyperparathyroidism for years. She number of years ago underwent a 3-1/2 gland parathyroidectomy, which temporarily resolved her problem. She now, however, has very elevated intact parathyroid hormone level and was referred back to me for repeat neck exploration. 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 She is brought to the hospital this morning with plans to administer the sestamibi isotope and after 2 hours to begin scanning to see if we can localize the radioactive parathyroid prior to the neck exploration. In my opinion, if her sestamibi scan is intensely positive in a position that corresponds with or correlates well with a past history of parathyroidectomy sparing one half of the left upper parathyroid and if that is the finding in surgery than I do not think that it is necessary at this point to explore and look for more than 1 tumor. Under general endotracheal anesthesia in supine position, the patient was prepped and draped in sterile manner. She was scanned preoperatively with the handheld Neoprobe device and a definite hot spot near the left upper thyroid pole was identified with counts of approximately 1700 with baseline background radiation of about 800 counts in the other 3 thyroid quadrants. I made a transverse incision reopening, the left lateral half of the scar from her previous collar incision for parathyroidectomy. The platysma was divided and a short subplatysmal flaps raised. The midline was exposed, so the strap muscles were there in the midline and mobilized to the left. Blunt and electrocautery dissection was necessary to expose the anterior surface of the thyroid gland. 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 The gland was removed totally devascularized and removed. I did note that there was a staple or clip present from the previous operation. The parathyroid gland was sent to pathology where it was confirmed to be parathyroid tissue. OPERATIVE REPORT [id number] JANINE WAITE The wound was irrigated with Ancef and gentamicin solution. The patient was rather oozy to begin with and this responded to administration of 10 mcg of DDAVP intravenously by the band aid machine operator and hemostasis was excellent at the completion of the operation. A small amount of fibrillar was used at the base of the parathyroid gland to complete the hemostasis. No drain was necessary. The strap muscles were approximated in the midline with interrupted 3-0 Vicryl. Platysma was approximated with interrupted inverted 3-0 Vicryl and the skin was closed with a running intracuticular 4-0 Monocryl suture. The incision was sealed with glue and dressed with Maxorb Ag, Tegaderm, and Cavilon skin prep. I then used ultrasound to image the right internal jugular vein. It was patent, although I could see that the lumen was certainly narrowed just behind the clavicle, no doubt from scarring from numerous previous central dialysis catheters. I accessed that vein about 2 fingerbreadths above the clavicle with ultrasound guidance and with micropuncture technique. I inserted a micropuncture guidewire as far as it was easily advanced without resistance, which was about half the normal distance I would expect to reach the atrium. I inserted the 4-Central African catheter over the guidewire and then with intraoperative fluoroscopy performed a superior vena cavogram. This demonstrated that the proximal brachiocephalic vein on the right and upper superior vena cava were kinked almost in a curlicue. I was then able to manipulate a 0.035 Glidewire through that 4-Central African catheter passed the curlicue and into the right atrium. A dilator was passed over that and then following that a dual lumen 8-1/2 Central African central venous line was inserted over the guidewire. The tip of that catheter was positioned in the right atrium. The guidewire was removed. Both lumens were aspirated, free return of blood confirmed. They were then flushed with saline and then heparin locked, clamped and capped. The catheter was sutured to the skin with a 2-0 Prolene suture and further sterile dressings including a chlorhexidine patch were applied. Blood loss during the operation was about 2 cc. None was replaced. Sponges, instruments, and needles were accounted for. No drain was used and the surgical specimen consisted only of one parathyroid gland, one hyperplastic parathyroid gland. PLAN: The patient is to be admitted to the ICU postoperatively and we will have to closely monitor her calcium levels as well as magnesium and check a followup intact parathyroid hormone level on her tomorrow morning. Arrangements will be made for her to continue peritoneal dialysis as well. TRANSINT:[id number] Voice Confirmation ID: [id number] DOCUMENT ID: [id number] SAGE WILSON MD at 1036 CC: LEILA WATTS [id number] DICTATION DATE: 02/18/19 1532 [place] HAND: 02/18/19 2236 DIS IN 02/21/19 [facility] [address] [place] [address]
== END 2019-02-21 10:04 | disposition home or self-care (01) | DRG 674 ==
LOC: D.OPS 08:12 → D.M2 14:58 → D.ICU 15:37 → D.OPS 23:42 → D.ICU 23:43 → D.M2 02-20 16:04
PROVIDERS: Internal Medicine Nephrology; Surgery; ADMIT Internal Medicine Nephrology; ATTEND Internal Medicine Nephrology
PROC: 02HV33Z Insertion of Infusion Device into Superior Vena Cava, Percutaneous Approach (ICD-10-PCS; 2019-02-18)
PROC: B5181ZA Fluoroscopy of Superior Vena Cava using Low Osmolar Contrast, Guidance (ICD-10-PCS; 2019-02-18)
PROC: B5181ZZ Fluoroscopy of Superior Vena Cava using Low Osmolar Contrast (ICD-10-PCS; 2019-02-18)
PROC: 0GBR0ZZ Excision of Parathyroid Gland, Open Approach (ICD-10-PCS; principal; 2019-02-18 10:45)
DX: N25.81 Secondary hyperparathyroidism of renal origin (principal); I12.0 Hypertensive chronic kidney disease with stage 5 chronic kidney disease or end stage renal disease; N18.6 End stage renal disease; E87.5 Hyperkalemia; D63.1 Anemia in chronic kidney disease

== ENCOUNTER 2020-06-15 01:18 | Inpatient (IN) | payer MEDICARE ==
[~2020-06-15] VITALS: Ht 139.7 cm; Wt 35.2 kg
[2020-06-15] VITALS (17 sets, daily range): BP systolic 80–118; BP diastolic 40–88; BMI 17.4
[~2020-06-15 01:18] MED LIST changes: +TUMS PO
--- NOTE | 2020-06-15 01:43 | NUR ---
PT'S BRIEF CHANGED AND JUANI CARE PROVIDED. PT GIVEN BLANKET AND HEAD OF BED ADJUSTED TO LEVEL OF COMFORT, PT DENIES ANY FURTHER NEEDS AT THIS TIME. CALL LIGHT IN REACH WILL CONTINUE TO MONITOR.
[2020-06-15 02:13] LABS: BASOPHILS 0.2 % (0-2); EOSINOPHILS 1.5 % (0-7); HEMATOCRIT 22.1 % (36.0-48.0); LYMPHOCYTES 25.8 % (15-50); MCH 29.1 pg (26.0-34.0); MCHC 32.6 g/dL (31.0-37.0); MCV 89.5 fL (80.0-100.0); MEAN PLATELET VOLUME 8.7 fL (7.4-10.4); MONOCYTES 6.1 % (2-11); NEUTROPHILS 66.4 % (40-80); RBC 2.47 10x6/uL (4.00-5.40); RDW 14.3 % (11.5-14.5); WBC 5.3 10x3/uL (4.8-10.8)
[2020-06-15 02:21] LABS: PLATELET COUNT 123 10x3/uL (130-400)
[2020-06-15 02:22] LABS: HEMOGLOBIN 7.2 g/dL (12-16)
--- NOTE | 2020-06-15 02:39 | NUR ---
OCCULT BLOOD STOOL NEGATIVE EDP INFORMED.
[2020-06-15 02:40] LABS: ALBUMIN 2.2 g/dL (3.4-5.0); ALKALINE PHOSPHATASE 64 U/L (30-120); ALT (SGPT) 18 U/L (10-68); AMYLASE - SERUM 114 U/L (25-115); BILIRUBIN - TOTAL 0.23 mg/dL (0.2-1.3); CALC OSMOLALITY 275 mosm/kg (275-300); CARBON DIOXIDE 21.8 mmol/L (21.0-32.0); CHLORIDE - SERUM 102 mmol/L (98-107); CREATINE KINASE 58 UL (21-215); CREATININE - SERUM 9.3 mg/dL (0.6-1.3); GLUCOSE 101 mg/dL (74-106); LIPASE 256 U/L (73-393); PROTEIN - SERUM 4.8 g/dL (6.4-8.2); SODIUM 135 mmol/L (136-145); TROPONIN-I 0.026 ng/mL (0.000-0.060); UREA NITROGEN 29 mg/dL (7-18); eGFR NON AFRICAN AMERICAN 5 mL/min (90-120)
[2020-06-15 02:45] LABS: POTASSIUM - SERUM 2.5 mmol/L (3.5-5.1)
[2020-06-15 03:15] LABS: HCG SERUM NEGATIVE (NEGATIVE)
--- NOTE | 2020-06-15 04:49 | NUR ---
PT MOVED TO TRAUMA ROOM 3 FOR CENTRAL LINE PLACEMENT.
--- NOTE | 2020-06-15 04:50 | NUR ---
CONSENT FORMS FOR PROCEDURE SIGNED BY PT AT THIS TIME.
[2020-06-15 05:15] LABS: PROTEIN - BODY FLUID 1.4 G/DL
--- NOTE | 2020-06-15 05:15 | NUR ---
EDP AT BEDSIDE TO PLACE CENTRAL LINE.
--- NOTE | 2020-06-15 05:24 | NUR ---
PT'S IV CALCIUM FINISHED AT THIS TIME.
[2020-06-15 05:57] LABS: MACROPHAGES BF 24 %; NEUT - BF 50 %
--- NOTE | 2020-06-15 06:11 | NUR ---
PT'S BRIEF CHANGED AND JUANI CARE PROVIDED. PT GIVEN WARM BLANKETS. DENIES ANY NEEDS AT THIS TIME, CALL LIGHT WITHIN REACH. WILL CONTINUE TO MONITOR.
--- NOTE | 2020-06-15 07:15 | NUR ---
ASSUMED CARE OF PT. RESTING IN BED/WATCHING TV. DENIES C/O OR NEED. A/OX3. RESP EVEN/UNLABORED. SKIN W/D/P. PERITONEAL DIALYSIS PORT TO RLQ WITH JUANG D/I. DENIES PAIN AT SITE "ONLY WHEN I DO MY DIALYSIS" PT REPORTS LAST DIALYSED THURSDAY. MATTHEWS INDPEEPENDENTLY. ABD SOFT, NT AND ND. VSS. LEVOPHED INFUSING TO RIGHT FEMORAL CVL. JUANG TO CVL D/I.
[2020-06-15 07:44] LABS: BASOPHILS 0.1 % (0-2); EOSINOPHILS 0.8 % (0-7); HEMATOCRIT 24.4 % (36.0-48.0); HEMOGLOBIN 8.1 g/dL (12-16); IMMATURE GRANULOCYTES 0.3 % (0-5); LYMPHOCYTES 28.3 % (15-50); MCH 29.8 pg (26.0-34.0); MCHC 33.2 g/dL (31.0-37.0); MCV 89.7 fL (80.0-100.0); MEAN PLATELET VOLUME 8.9 fL (7.4-10.4); NEUTROPHILS 64.5 % (40-80); RBC 2.72 10x6/uL (4.00-5.40); RDW 14.5 % (11.5-14.5)
[2020-06-15 07:47] LABS: PLATELET COUNT 199 10x3/uL (130-400); WBC 10.1 10x3/uL (4.8-10.8)
[2020-06-15 07:50] LABS: ALBUMIN 2.6 g/dL (3.4-5.0); ANION GAP 16.9 mmol/L (8-16); BILIRUBIN - TOTAL 0.33 mg/dL (0.2-1.3); CALCIUM 7.1 mg/dL (8.5-10.1); CARBON DIOXIDE 17.8 mmol/L (21.0-32.0); CREATININE - SERUM 9.8 mg/dL (0.6-1.3); POTASSIUM - SERUM 3.7 mmol/L (3.5-5.1); PROTEIN - SERUM 5.5 g/dL (6.4-8.2)
--- NOTE | 2020-06-15 09:30 | NUR ---
INCONT TO LARGE AMT SOFT FORMED/LOOSE STOOL. CLEANSED AND JUANI CARE GIVEN. SMALL AMT IRRITATION TO LABIAS AND PERINEUM AREA.
--- NOTE | 2020-06-15 11:10 | NUR ---
BS REPORT TO CLARY MCLAIN
--- NOTE | 2020-06-15 11:18 | NUR ---
BS REPORT TO CLARY MCLAIN
--- NOTE | 2020-06-15 11:20 | NUR ---
CHANGED PT BREIF AND UNDERPAD. MED DIARRHEA. PERICARE GIVEN AND CLEAN BREIF AND PAD GIVEN. NOTED SOME REDDENED AREAS ON GROIN AREA.
--- NOTE | 2020-06-15 11:20 | NUR ---
PT DENIES NEEDS AT THIS TIME. PT DENIES HUNGER. FOOD LEFT ON TRAY.
--- NOTE | 2020-06-15 13:44 | NUR ---
PT DENIES ANY NEEDS AT THIS TIME. SHE IS LAYING IN THE BED WITH EYES CLOSED BUT EASILY AROUSED.
[2020-06-15 13:48] LABS: HEMATOCRIT 27.6 % (36.0-48.0); HEMOGLOBIN 9.1 g/dL (12-16)
--- NOTE | 2020-06-15 14:48 | NUR ---
PT DOES NOT MAKE URINE. URINE LAB CANCELLED.
--- NOTE | 2020-06-15 15:13 | NUR ---
METRONIDAZOLE INFUSION COMPLETE @ 5373. SITE FLUSHED WITH NS 10 CCS.
--- NOTE | 2020-06-15 15:50 | NUR ---
PT RESTING WITH EYES CLOSED.
--- NOTE | 2020-06-15 18:49 | NUR ---
NOREPINEPHRINE INFUSION COMPLETE
--- NOTE | 2020-06-15 18:57 | NUR ---
CHANGED BRIEF. SMALL DIARRHEA. LABIA IS RED. JUANI CARE FOR PT AND APPLIED CLEAN BRIEF AND PAD UNDER HER.
--- NOTE | 2020-06-15 19:13 | NUR ---
FLOOR ROOM IS STILL AWAITING TO BE CLEANED
--- NOTE | 2020-06-15 19:13 | NUR ---
REPORT GIVEN TO CLARY PALOMARES
[2020-06-15 20:59] LABS: HEMATOCRIT 26.7 % (36.0-48.0); HEMOGLOBIN 8.7 g/dL (12-16)
[2020-06-16] VITALS (37 sets, daily range): BP systolic 74–123; BP diastolic 56–89; Ht 139.7 cm; Wt 35.2 kg
[2020-06-16 06:23] LABS: BASOPHILS 0.2 % (0-2); EOSINOPHILS 2.2 % (0-7); HEMATOCRIT 26.6 % (36.0-48.0); HEMOGLOBIN 8.6 g/dL (12-16); IMMATURE GRANULOCYTES 0.2 % (0-5); LYMPHOCYTES 18.3 % (15-50); MCH 29.1 pg (26.0-34.0); MCHC 32.3 g/dL (31.0-37.0); MCV 89.9 fL (80.0-100.0); MEAN PLATELET VOLUME 9.2 fL (7.4-10.4); MONOCYTES 4.1 % (2-11); PLATELET COUNT 172 10x3/uL (130-400); RBC 2.96 10x6/uL (4.00-5.40); RDW 14.6 % (11.5-14.5); WBC 8.7 10x3/uL (4.8-10.8)
[2020-06-16 10:13] LABS: ALBUMIN 2.6 g/dL (3.4-5.0); BILIRUBIN - TOTAL 0.27 mg/dL (0.2-1.3); CREATININE - SERUM 11.8 mg/dL (0.6-1.3); MAGNESIUM - SERUM 1.3 mg/dL (1.8-2.4); PHOSPHOROUS 5.4 mg/dL (2.5-4.9); PROTEIN - SERUM 5.6 g/dL (6.4-8.2); VANCOMYCIN - RANDOM 28.5 ug/mL (10.0-20.0)
[2020-06-16 10:15] LABS: ANION GAP 20.5 mmol/L (8-16); POTASSIUM - SERUM 4.5 mmol/L (3.5-5.1)
[2020-06-16 13:10] LABS: HEMATOCRIT 22.8 % (36.0-48.0); HEMOGLOBIN 7.6 g/dL (12-16)
--- NOTE | 2020-06-16 13:44 | NUR ---
0700 REPORT RECIEVED AND CARE ASSUMED OF PATIENT.. SEE FLOW SHEET FOR SHIFT ASSESMENT FINDINGS.. 0720 WARM BLANKET ADDED FOR TEMP OF 97.4 PER CRITICORE ARMENTA CATH.. NOTED DECORDICATE MOVEMENT OF LIMBS..RIGHT LOWER LEG IS WITH BLISTERS AND TOES ARE BLACK.. PIV X2 IN RIGHT ARM DCd AT THIS TIME... 0745 DR MORA IN TO SEE PATIENT UPDATE GIVEN.. 0900 STEP MOM CALLED AND UPDATE GIVEN... 0915 DR BRAVO IN TO SEE PATIENT 1000 BS IS DONE.. BLOOD CULTURES DRAWN FROM NURSE PORT OF TRIALYSIS CATH.. 1030 LAB TEECH IN TO DRAW BLOOD CULTURES FROM PERIFERAL STICK.. 1030 DR RAUSCH IN TO SEE PATIENT UPDATE IS GIVEN.. 1130 DR RAUSCH ATTEMPT TO CALL FAMILT.. MESSAGE LEFT TO RETURN CALL.. 1220 DR SHAH IN TO SEE PATIENT SPOKE WITH DR RAUSCH.. 1230 STEP MOM RETURNED CALL SPEAKING WITH DR RAUSCH AND THEN DR SHAH ON THE PHONE.. 1330 PATIENT BIOLOGICAL MOTHER CALLED INTO UNIT STATING THAT SHE HAS SPOKEN WITH PTS FATHER AND SIBLINGS.. AND THEY WISH TO HAVE A TERMINAL EXTUBATION .. THAT PATIENT WOULD NEVER WANT TO LIVE UNDER THE CONDITIONS HE WILL HAVE.. THWEY WILL BE HERE IN 3-4 HOURS AND AT THAT TIME EXTUBATION WILL BE INITIATED..
--- NOTE | 2020-06-16 14:50 | NUR ---
0700 REPORT RECIEVED AND CARE ASSUMED OF PATIENT.. SEE FLOW SHEET FOR SHIFT ASSESMENT FINDINGS 0730 RUBI ENRIQUEZ RENAL IN TO SEE PATIENT UPDATE IS GIVEN,,, 0830 BREAKFAST SERVED AND PATIENT IS FEEDING SELF.. 0840 INCONTINENT OF SSTOOL IN ADULT DIAPER.. SPECIMEN SENT TO LAB PER ORDER.. 0930 DR BRADY IN TO SEE PATIENT.. 1100 DR RAUSCH IN TO SEE PATIENT 1115 INCONTINENT OF STOOL PT CLEANED.. 1220 LUNCH SERVED AND PATIENT IS FEEDING SELF.. 1400 PD FLUID WARMED SUPPLIES TAKEN INTO THE PATIENT ROOM.. PATIENT STATES AT THIS TIME THAT THE [employer] PD SET UP NEEDS AND ADAPTER TO HER SET UP .. AMANDA Ramirez RN ON FLOOR CALLED.. PT STATES THAT SHE IS EMPTY OF FLUID AT THIS TIME. 1430 AMANDA HERE AND ADAPTER LOCATED .. PD FLUID INFUSING FOR DWELL 1445 PD DWELL STARTED.. 1500 CC INFUSED PER ORDER
--- NOTE | 2020-06-16 16:43 | NUR ---
1630 DIET SERVED AND PATIENT IS FEEDING SELF.. BRONWYN TO DWELL WITH PD
[2020-06-17] VITALS (24 sets, daily range): BP systolic 88–155; BP diastolic 56–81
--- NOTE | 2020-06-17 00:14 | NUR ---
RADIOLOGY CALLED TO ASK ABOUT KUB ORDERED OF REASON FOR COUGH. LOOKED THROUGH NOTE AND THERE IS AN ORDER FOR AM. INFORMED RADIOLOGY AND THEY SAID THAT THEY WERE GOING TO LEAVE IT FOR DAY SHIFT RADIOLOGY SO IT CAN BE CLARIFIED
[2020-06-17 06:08] LABS: BASOPHILS 0.4 % (0-2); EOSINOPHILS 4.3 % (0-7); HEMATOCRIT 24.9 % (36.0-48.0); HEMOGLOBIN 8.1 g/dL (12-16); IMMATURE GRANULOCYTES 0.3 % (0-5); LYMPHOCYTES 22.2 % (15-50); MCH 29.2 pg (26.0-34.0); MCHC 32.5 g/dL (31.0-37.0); MCV 89.9 fL (80.0-100.0); MEAN PLATELET VOLUME 8.8 fL (7.4-10.4); MONOCYTES 4.8 % (2-11); PLATELET COUNT 180 10x3/uL (130-400); RBC 2.77 10x6/uL (4.00-5.40); RDW 14.6 % (11.5-14.5); WBC 7.7 10x3/uL (4.8-10.8)
[2020-06-17 06:25] LABS: ALBUMIN 2.5 g/dL (3.4-5.0); BILIRUBIN - TOTAL 0.37 mg/dL (0.2-1.3); CREATININE - SERUM 10.9 mg/dL (0.6-1.3); PROTEIN - SERUM 5.4 g/dL (6.4-8.2); VANCOMYCIN - RANDOM 37.2 ug/mL (10.0-20.0)
[2020-06-17 06:26] LABS: ANION GAP 15.2 mmol/L (8-16); CARBON DIOXIDE 21.2 mmol/L (21.0-32.0); POTASSIUM - SERUM 5.4 mmol/L (3.5-5.1)
--- NOTE | 2020-06-17 06:43 | NUR ---
2014 PD BALANCE -600 PT TOLERATED WELL. NAD AT THIS TIME. DENIES PAIN AND NEEDS 0215 PD BALANCE 0 PT TOLERATED WELL. NAD. DENIES PAIN AND NEEDS 0645 PT STOOL IS BEGINNING TO THICKEN. BMX3 THIS SHIFT. BUTTOCKS AND PERIAREA IS REDDENED. PT REFUSES TO LEAVE VEHICLE LEASING AND RENTAL MANAGER DUE TO INCONTINENCE. PT ENCOURAGED TO USE BSC. SHE REFUSED AND STATES THAT SHE WANTS TO CONTINUE TO USE BRIEFS. VSS THIS SHIFT WITH MAP REMAINING GREATER THAN 60. WILL CONTINUE TO MONITOR
[2020-06-17 12:24] LABS: HEMATOCRIT 25.4 % (36.0-48.0); HEMOGLOBIN 8.2 g/dL (12-16)
--- NOTE | 2020-06-17 17:47 | NUR ---
1500 PD CONTINUES IN PROGRESS.. INCONTINENT OF STOOL CONTINUES WITH EXCORIATION ON BUTTOCKS.. 1630 DIET SERVED AND PT FEEDING SELF.. 1700 REPORT CALLED TO ICU AND PT TRANSPORTED TO CV VIA BED...
--- NOTE | 2020-06-17 17:50 | NUR ---
REC'D TO CV 06 VIA BED. TRANSFERRED SELF TO CV BED. CONNECTED TO MONITOR AND VS OBTAINED.
[2020-06-17 20:01] LABS: HEMATOCRIT 24.4 % (36.0-48.0); HEMOGLOBIN 7.9 g/dL (12-16)
[2020-06-18] VITALS (8 sets, daily range): BP systolic 91–103; BP diastolic 60–72
[2020-06-18 06:24] LABS: BASOPHILS 0.3 % (0-2); EOSINOPHILS 4.6 % (0-7); HEMATOCRIT 22.9 % (36.0-48.0); IMMATURE GRANULOCYTES 0.3 % (0-5); LYMPHOCYTES 23.9 % (15-50); MCH 29.1 pg (26.0-34.0); MCHC 32.3 g/dL (31.0-37.0); MCV 90.2 fL (80.0-100.0); MEAN PLATELET VOLUME 8.7 fL (7.4-10.4); MONOCYTES 4.4 % (2-11); NEUTROPHILS 66.5 % (40-80); PLATELET COUNT 176 10x3/uL (130-400); RBC 2.54 10x6/uL (4.00-5.40); RDW 14.9 % (11.5-14.5); WBC 6.8 10x3/uL (4.8-10.8)
[2020-06-18 06:38] LABS: HEMOGLOBIN 7.4 g/dL (12-16)
[2020-06-18 07:31] LABS: ALBUMIN 2.3 g/dL (3.4-5.0); BILIRUBIN - TOTAL 0.27 mg/dL (0.2-1.3); CALCIUM 7.4 mg/dL (8.5-10.1); CARBON DIOXIDE 21.9 mmol/L (21.0-32.0); CREATININE - SERUM 10.2 mg/dL (0.6-1.3); VANCOMYCIN - RANDOM 31.7 ug/mL (10.0-20.0)
[2020-06-18 07:34] LABS: POTASSIUM - SERUM 3.9 mmol/L (3.5-5.1)
[2020-06-18] MEDS ORDERED: MIDODRINE HCL5 MG PO (07:57)
--- NOTE | 2020-06-18 08:00 | NUR ---
PER DR MELENDREZ, EMPTY THE PT OF THE PD FLUID AND DO NOT REPLACE. PLAN FOR DISCHARGE THIS AM.
--- NOTE | 2020-06-18 11:05 | NUR ---
PT BELONINGS ACCOUNTED FOR. PT EDUCATION PROVIDED. VSS. PT LEFT IN A STABLE CONDITION. PT LEFT VIA MOTHERS CAR WITH HER MOTHER DRIVING.
--- NOTE | 2020-06-18 11:52 | MORECARE ---
CASE MANAGEMENT DISCHARGE SUMMARY PATIENT: JANINE SMITH UNIT: [id number] ADM DATE: 06/15/20 AGE: 34 : 85 SEX: F [facility] AUTHOR: IS[place] PHYSICIAN: REFERRING PHYSICIAN: ANGELA RAUSCH MD DATE OF SERVICE: 06/18/20 Discharge Plan Patient Name: JANINE SMITH [facility] [facility] 1985 Planned Disposition: Home Anticipated Discharge Date: Discharge Date: 06/18/2020 Expected LOS: Initial Reviewer: [email or web address] Initial Review Date: 06/15/2020 Generated: 06/18/20 12:51 pm DCPIA - Discharge Planning Initial Assessment Updated by [email or web address]: Maggie Mayorga on 06/18/20 11:49 am * Is the patient Alert and Oriented? Yes * How many steps to enter\exit or inside your home? * PCP KRISTEN BETHEA * Pharmacy [facility] * Preadmission Environment Home with Family * ADLs Independent * Other Equipment PD SUPPLIES * Verbal permission to speak to the caregivers and representatives has been obtained from the patient. Yes * Community resources currently utilized None * Additional services required to return to the preadmission environment? No * Can the patient safely return to the preadmission environment? Yes * Has this patient been hospitalized within the prior 30 days at any hospital? No Patient Name: JANINE SMITH Page [phone] at 1152 All edits/amendments must be made on the electronic document DICTATION DATE: 06/18/20 1152 ROUTE PROCESS ADMINISTRATOR: FARZANA 06/18/20 1152 RPT#: [id number] DC DATE:06/18/20 STATUS: DIS IN [facility] [address] [place] [address] END OF REPORT
--- NOTE | 2020-06-18 12:00 | MORECARE ---
CASE MANAGEMENT DISCHARGE SUMMARY PATIENT: JANINE SMITH UNIT: [id number] ADM DATE: 06/15/20 AGE: 34 : 85 SEX: F [facility] AUTHOR: CJ,DOC PHYSICIAN: REFERRING PHYSICIAN: ANGELA RAUSCH MD DATE OF SERVICE: 06/18/20 Discharge Plan Patient Name: JANINE SMITH Facility: [facility]:[place] : 1985 Planned Disposition: Home Anticipated Discharge Date: Discharge Date: 06/18/2020 Expected LOS: Initial Reviewer: [email or web address] Initial Review Date: 06/15/2020 Generated: 06/18/20 12:59 pm Comments DCP- Discharge Planning Updated by [email or web address]: Maggie Mayorga on 06/18/20 10:[address] Patient Name: JANINE SMITH Admission Status: ER Accout number: [id number] Admission Date: 06-15-2020 : 1985 Admission Diagnosis: Attending: ANGELA RAUSCH Current LOS: 3 Anticipated DC Date: Planned Disposition: Home Primary Insurance: MEDICARE A & B Discharge Planning Comments: CM met with patient to complete initial dc planning assessment. CM educated patient on the CM role and verbal consent given by patient to complete assessment. Patient lives at home with family. Patient is independent. At discharge patient plans to return home and feels this is a safe discharge. CM discussed availability of home health, rehab services, and medical equipment. Patient will have family to transport home. Patient denied known discharge needs at this time. CM will continue to follow and will assist as needed with dc plans/needs. D/C IMM signed 06/18/20 @ 1021 Concrete Saw Operator: Maggie Mayorga DCPIA - Discharge Planning Initial Assessment Updated by [email or web address]: Maggie Mayorga on 06/18/20 11:49 am * Is the patient Alert and Oriented? Yes * How many steps to enter\exit or inside your home? * PCP KRISTEN BETHEA * Pharmacy [facility] * Preadmission Environment Home with Family * ADLs Independent * Other Equipment PD SUPPLIES * Verbal permission to speak to the caregivers and representatives has been obtained from the patient. Yes * Community resources currently utilized None * Additional services required to return to the preadmission environment? No * Can the patient safely return to the preadmission environment? Yes * Has this patient been hospitalized within the prior 30 days at any hospital? No Coverage Notice Reviewer: [email or web address] Danette Mayorga Notice Issued Date-Time: 06/18/2020 10:21 Notice Type: IM Discharge Notice Notice Delivered To: Patient Relationship to Patient: Stevedoring Supervisor Name: Delivery Method: HAND - Hand Delivered Clarita Days: Prior Verbal Notification: Recipient Understood Notice: Yes Recipient Signature: Yes Med Rec Note Co-signed by Attending: Coverage Notice Comment: Last DP export: 06/18/20 10:52 a Patient Name: JANINE SMITH Page [phone] at 1200 All edits/amendments must be made on the electronic document DICTATION DATE: 06/18/20 1159 STOCK TRANSFER CLERK: FARZANA 06/18/20 1159 RPT#: [id number] DC DATE:06/18/20 STATUS: DIS IN [facility] [address] [place] [address] END OF REPORT
== END 2020-06-18 11:07 | disposition home or self-care (01) | DRG 314 ==
LOC: D.ER 01:18 → D.ICU 06:38 → D.CVICU 06:38 → D.EDHOLD 06:38 → D.ICU 18:13 → D.CVICU 06-17 18:09
PROVIDERS: Emergency Medicine; Family Medicine Adult Medicine; Internal Medicine Nephrology; ADMIT Family Medicine; ATTEND Family Medicine
DX: I95.9 Hypotension, unspecified (principal); N18.6 End stage renal disease; E87.1 Hypo-osmolality and hyponatremia; E03.9 Hypothyroidism, unspecified; K21.9 Gastro-esophageal reflux disease without esophagitis; E87.6 Hypokalemia